=== PATIENT | female | born 1980 | race Caucasian/White ===

== ENCOUNTER 2016-06-14 15:28 | Emergency (ER) | payer MEDICARE, MEDICAID ==
[~2016-06-14] VITALS: Ht 177.8 cm; Wt 111.1 kg
[~2016-06-14 15:28] MED LIST: ASPIRIN CHILDRE81 M1 PO; CELLCEPT500 MG PO; CIPRO 500MG TA500 MG PO; COUMADIN 5MG TAB5 MG PO; FLEXERIL10 MG PO; FOLIC ACID 1MG T1 MG PO; KEFLEX 500MG.500 MG PO; LORTAB 5/500 501 TAB PO; MEDROL 4MG. DOSE4 MG PO; MIDAMOR5 MG; PHENTERMINE37.5 MG PO; PLAQUENIL200 MG PO; POTASSIUM CHLO20 ME2 PO; PREDNISONE 10MG10 MG PO; PROCARDIA XL 6060 MG OR; PROTONIX 40MG T40 MG PO; PROTONIX40 MG PO; PROZAC20 MG; SEPTRA DS 800 M1 TA1 PO; TREXALL15 MG PO; VICODIN 5/500 T1 TAB PO
[2016-06-14] MEDS ORDERED: COUMADIN7.5 MG PO (15:41)
[2016-06-14] MEDS ORDERED: AMITRIPTYLINE 550 MG PO (15:42)
[2016-06-14] MEDS ORDERED: OXYBUTYNIN CHLO10 MG PO (15:42)
[2016-06-14] MEDS ORDERED: ACETAMINOPHEN-H1 TA2 PO (15:43)
--- NOTE | 2016-06-14 16:11 | RADIOLOGY REPORT PS360 ---
FOOT-LT-3 VIEWS HISTORY: Foreign body evaluation, pain POSSIBLE FB ORDERING PHYSICIAN: Jenny Dodd MD PATIENT AGE: 36 years COMPARISON: None FINDINGS: A linear metallic density which appears to represent a needle is present within the soft tissues of the left foot superficial to the plantar surface of the mid aspect of the calcaneus. This measures approximately 2.5 cm in length. No bony anomalies. No soft tissue gas. IMPRESSION: Positive for foreign body. What appears to represent a needle is present in the plantar surface of the foot posteriorly
--- NOTE | 2016-06-14 16:12 | Emergency Room Report ---
History of Present Illness Time Seen by [email or web address] Presenting Problem in Triage Pt arrived:Walked Presenting Problem:PT REPORTS POSSIBLE FB IN BOTTOM OF L FOOT. 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 N Clinical Suspician of Infection? N Mental Status: 1 - Regular (Normal Baseline) Sepsis Risk:Low Sepsis Risk Have you (or family members/close friends) recently traveled outside the [place]? N If Yes, where/when: Have you had exposure to infectious disease within the past month? N TB? Other? Specify: Needle broke off when trying to remove it from sole at 1430 today. Was barefoot at home when FB impaled foot. Hx dermatomyositis. No numbness or weakness. Not diabetic. ALLERGIES Coded Allergies: No Known Allergies (06/14/16) Home Medications Reported Medications Nifedipine (Procardia Xl 60MG. Tablet) 60 MG OR DAILY Hydroxychloroquine Sulfate (Plaquenil) 200 MG PO BID Amiloride Hydrochloride (Midamor) POTASSIUM CHL (Potassium Chloride) 20 MEQ PO BID Fluoxetine Hcl (Prozac) WARFARIN SOD (Coumadin) 5 MG PO DAILY #30 TAB Mycophenolate Mofetil (Cellcept) 1,500 MG PO BID #3 TAB Warfarin Sodium (Coumadin) 7.5 MG PO SATURDAY Oxybutynin Chloride (Oxybutynin Chloride ER) 10 MG PO DAILY #30 Amitriptyline Hcl (Amitriptyline) 50 MG PO QHS #30 HYDROCODONE/ACETAMINOPHEN (Hydrocodon-Acetaminophen 5-325) 1 TAB PO Q12HP #60 History Medical History General CAD? No Angina: No PA: No Hypertension? No Hyperlipidemia? No CHF? No DVT? Yes PE? Yes COPD? No Asthma? No Anemia? No GERD? No Gastric ulcers? No GI Bleed? No Hernia? No Thyroid Problems? No Hypothyroidism? No CVA? No Seizures? No Diabetes? No Insulin Dependent: No Insulin Pump: No Home FSBS? No Renal Insuffiency? No End Stage Renal Disease? No UTI? No Stones? No BPH? No GB Disease: Yes Nephritic Syndrome? No Asplenia? No Hepatitis? No Sickle Cell Disease? No Arthritis? No Migraines? No Cataracts? No Glaucoma? No MRSA? No HIV? No TB? No Anxiety? No Depression? No Cancer? No More? 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 Cardiovascular no peripheral edema Extremities non-tender (FROM left toes n/v intact), normal range of motion, no pedal edema, very minimal opening of integument, sole of L heel, no palpable or visible FB noted. No drainage. Foot is clean. Neurologic alert, normal exam, no motor/sensory deficits Skin intact (see above) Medical Decision Making LABS/Meds/Orders Pt receiving controlled substance in ED? No Results/Orders Current Medication Orders Sig/Enoch Start time Last Medication Dose Route Stop Time Status Admin Naproxen 0 .STK-MED ONE 06/14 1617 DC PO Naproxen 500 MG ONCE ONE 06/14 1615 DC PO 06/14 1616 Diphtheria/Pertussis/ 0 .STK-MED ONE 06/14 1603 DC Tetanus Vacc IM Diphtheria/Pertussis/ 0.5 ML ONCE ONE 06/14 1600 DC 06/14 Tetanus Vacc IM 06/14 1601 1618 Orders Procedure Date/time Status STABILIZE JOINT 06/14 1611 Active XRAY/CT/US XRAY/CT/US XRAY foot XR interpretation by reviewed by me (lucent FB in soft tissue ) Xray Results normal/NAD (lucent FB in soft tissue) Consult Physician Consult Time Called 1603 Reason Pt. Condition Comments d/w Dr. Francis: will see pt in clinic, Rx Augmentin. Departure Departure Time of Disposition 1615 Disposition DC Home or Self Care(routine) Clinical Impression Primary Impression: Foreign body in foot, left Qualifiers: Encounter type: initial encounter Qualified Code: S90.852A - Superficial foreign body, left foot, initial encounter Condition STABLE Referrals HONEY FRANCIS MD Additional Instructions soak foot in Epsom salts and scrub several times a day, crutches for support, see Dr. Francis in clinic next week (call for appt); Rx Augmentin. Weight bearing as tolerated. Discharge Counseling Counseled pt/family regarding diagnosis, test results, medications/RX, home care, follow up needs Prescriptions Current Visit Scripts NAPROXEN (NAPROXEN 500MG TAB) 500 MG PO BIDP PRN pain #12 TAB Amoxicillin/Potassium Clav (Augmentin 875-125 Tablet) 1 EACH PO BID #20 TAB generic acceptable ED Critical Care Critical Care No at [id number]
[2016-06-14] MEDS ORDERED: NAPROXEN SODIU500 MG PO (16:17)
[2016-06-14] MEDS ORDERED: AUGMENTIN 875-1 EACH PO (16:19)
[2016-06-14 16:28] VITALS: BP 132/91
== END 2016-06-14 16:29 | disposition home or self-care (01) ==
LOC: ER 15:28
DX: S91.342A Puncture wound with foreign body, left foot, initial encounter (principal); W22.8XXA Striking against or struck by other objects, initial encounter; Y92.009 Unspecified place in unspecified non-institutional (private) residence as the place of occurrence of the external cause; Z23 Encounter for immunization